=== PATIENT | female | born 1980 | race Two or more races ===

== ENCOUNTER 2021-03-09 12:03 | Emergency (ER) | payer MEDICAID ==
[~2021-03-09] VITALS: Ht 162.6 cm; Wt 114.0 kg
[2021-03-09] MEDS ORDERED: HYDROCODONE/ACETAMINOPHEN 5/325MG TABLET PO ONE (12:30)
[2021-03-09] MEDS ORDERED: NAPR-681 MT (14:42)
[2021-03-09] MEDS ORDERED: TRAM50TA3 MT (14:42)
[2021-03-09 14:52] VITALS: BP 140/78
== END 2021-03-09 14:52 | disposition home or self-care (01) ==
LOC: ER 12:17
DX: S16.1XXA Strain of muscle, fascia and tendon at neck level, initial encounter (principal); R51.9 Headache, unspecified; M79.18 Myalgia, other site; E11.9 Type 2 diabetes mellitus without complications; I10 Essential (primary) hypertension; V43.52XA Car driver injured in collision with other type car in traffic accident, initial encounter; W22.11XA Striking against or struck by driver side automobile airbag, initial encounter; Y93.89 Activity, other specified; Y92.488 Other paved roadways as the place of occurrence of the external cause
CPT/HCPCS: 72050; 73030; 99284